=== PATIENT | female | born 1950 | race Caucasian/White ===

== ENCOUNTER → 2020-09-29 | Outpatient (CLI) | payer OTHER, BC ==
[~2020-09-29] MED LIST: ALENDRONATE SOD70 MG PO; ASA81BEC PO; BIOTIN1 M1 PO; CALCIUM500 MG PO; GLUCOSAMINE &1 EACH PO; IBUPROFEN200 M1 PO; KLOR-CON 10 ER10 MEQ PO; LIPITOR10 MG PO; LORATIDINE 10 M10 M1 PO; LUTEIN20 M1 PO; MAGNESIUM250 M1 PO; MELOXICAM15 MG PO; NOLVADEX20 MG PO; SUPER THERAVIT1 EACH PO; ULTRAM50 MG PO; VITAMIN D310 MC2 PO
== END ==
LOC: MRI 13:22
PROVIDERS: ATTEND Nuclear Medicine Nuclear Cardiology
DX: S32.010A Wedge compression fracture of first lumbar vertebra, initial encounter for closed fracture (principal); X58.XXXA Exposure to other specified factors, initial encounter; Y93.89 Activity, other specified; Y92.89 Other specified places as the place of occurrence of the external cause; Y99.8 Other external cause status

== ENCOUNTER → 2020-09-30 | Outpatient (CLI) | payer OTHER, BC ==
[~2020-09-30] VITALS: Ht 162.6 cm; Wt 76.7 kg
[2020-09-30 12:39] VITALS: BP 149/80
[2020-09-30 13:11] LABS: HEMATOCRIT 40.1 % (37.0-47.0); HEMOGLOBIN 14.2 gm/dL (12.0-15.0); MCH 31.9 pg (26.0-34.0); MCHC 35.3 g/dL (28.0-37.0); MCV 90.3 fL (80.0-100.0); RBC 4.44 mil/uL (4.20-5.00); RDW 12.7 % (10.5-14.5); WBC 10.3 thou/uL (4.0-11.0)
== END | disposition home or self-care (01) ==
LOC: CATH 06:30
PROVIDERS: ATTEND Nuclear Medicine Nuclear Cardiology
DX: M54.9 Dorsalgia, unspecified (principal); M80.08XA Age-related osteoporosis with current pathological fracture, vertebra(e), initial encounter for fracture; I10 Essential (primary) hypertension; E78.00 Pure hypercholesterolemia, unspecified; E78.5 Hyperlipidemia, unspecified; Z98.890 Other specified postprocedural states; Z79.899 Other long term (current) drug therapy; Z85.3 Personal history of malignant neoplasm of breast; Z90.710 Acquired absence of both cervix and uterus; Z79.82 Long term (current) use of aspirin

== ENCOUNTER → 2020-10-19 | Outpatient (CLI) | payer OTHER, BC | LOC: SJCVC 10:58 | PROVIDERS: ATTEND Nuclear Medicine Nuclear Cardiology | DX: M80.08XG Age-related osteoporosis with current pathological fracture, vertebra(e), subsequent encounter for fracture with delayed healing (principal); E78.00 Pure hypercholesterolemia, unspecified; E78.5 Hyperlipidemia, unspecified; I10 Essential (primary) hypertension; M54.5 Low back pain; Z79.82 Long term (current) use of aspirin; Z79.899 Other long term (current) drug therapy; Z72.89 Other problems related to lifestyle ==